=== PATIENT | female | born 1930 | race Caucasian/White ===

== ENCOUNTER 2017-06-13 18:16 | Inpatient (IN) | payer MEDICARE ==
[~2017-06-13] VITALS: Ht 157.5 cm; Wt 52.7 kg
[~2017-06-13 18:16] MED LIST: ALEN70TA2 PO
[2017-06-13] MEDS ORDERED: SODIUM CHLORIDE 0.9% 250 ML IV ONE (19:34)
[2017-06-13 20:08] LABS: Allen Test Yes; Base Excess 1.9 mmol/L (-2.0-2.0); Blood 02Sat 91.2 % (96-100); Blood COHb 0.8 % (0.5-1.5); Blood MetHb 0.5 % (0.0-1.5); HCO3 24.7 mmol/L (22-26.0); HHb 8.7 % (0.0-5.0); MODE ROOM AIR; PCO2 32.9 mmHg (35.0-45.0); PCO2(T) 32.9 mmHg (35.0-45.0); PO2 60.1 mmHg (80.0-100.0); PO2(T) 60.1 mmHg (80.0-100.0); Sample Type Arterial; pH 7.493 (7.350-7.450)
[2017-06-13 20:38] LABS: Basophils # (auto) 0.1 uL; Basophils % (auto) 0.4 % (0.0-2.0); Eosinophils # (auto) 0.1 uL; Eosinophils % (auto) 0.4 % (0.0-7.0); Hematocrit 38.6 % (36.0-46.0); Hemoglobin 12.6 g/dL (12.2-16.2); Lymphocytes # (auto) 0.8 uL; Lymphocytes % (auto) 5.7 % (10.0-50.0); Mean Corpuscular Hemoglobin 27.8 pg (28.0-32.0); Mean Corpuscular Hgb Conc. 32.7 g/dL (32.0-36.0); Mean Corpuscular Volume 85.1 fL (80.0-100.0); Mean Platelet Volume 7.7 fL (6.9-10.8); Monocytes # (auto) 1.2 uL; Monocytes % (auto) 8.8 % (0.0-12.0); Neutrophils # (auto) 11.4 uL; Neutrophils % (auto) 84.7 % (37.0-80.0); Platelet Count (auto) 241 10^3/uL (140-450); Red Cell Distribution Width 14.3 % (11.8-14.3); White Blood Cell 13.5 10^3/uL (4.4-10.8)
[2017-06-13 20:48] LABS: Albumin 2.9 g/dL (3.4-5.0); Anion Gap 10 (5-15); Aspartate Aminotransferase 21 U/L (15-37); Blood Urea Nitrogen 13 mg/dL (7-18); Calcium 8.4 mg/dL (8.5-10.1); Carbon Dioxide 26 mmol/L (21-32); Chloride 96 mmol/L (98-107); GFR African American 144 mL/min; GFR Non-African American 119 mL/min; Glucose 93 mg/dL (74-106); Potassium 4.2 mmol/L (3.5-5.1); Sodium 132 mmol/L (136-145)
[2017-06-13 20:53] LABS: Alkaline Phosphatase 85 U/L (45-117); Bilirubin, Total 0.9 mg/dL (0.2-1.0); Total Protein 6.8 g/dL (6.4-8.2)
[2017-06-13 20:54] LABS: Urine Bilirubin Negative (Negative); Urine Blood 2+ /uL (Negative); Urine Color Yellow (Yellow); Urine Glucose Normal (Normal); Urine Ketone 2+ (Negative); Urine Mucus FEW (None Seen); Urine Nitrite Negative (Negative); Urine RBC 4 /hpf (0 - 4); Urine Squamous Epithelial Cell FEW /hpf (<5); Urine Urobilinogen Normal (Negative); Urine pH 5.5 (5.0-8.0)
[2017-06-13 20:56] LABS: B-Type Natriuretic Peptide 116.84 pg/mL (0-100)
[2017-06-13 21:02] LABS: INR 1.12 (0.9-1.15)
[2017-06-13 21:04] LABS: Temperature: 22.8 C (20.0-25.0)
[2017-06-13] MEDS ORDERED: AZTREONAM 1GM INJ 1 GM in D5W 5% 50 ML IV ONE (22:15)
[2017-06-13] MEDS ORDERED: ENOXAPARIN SOD 60 MG/0.6 ML SYRINGE SC ONE (22:30)
[2017-06-13] MEDS ORDERED: IOHEXOL 350 MG/ML 100ML IJ ONE (22:40)
[2017-06-13] MEDS: SODIUM CHLORIDE 0.9% 1,000 ML IV SCH (22:40)
[2017-06-13] MEDS ORDERED: ONDANSETRON HCL 4 MG/2 ML VIAL IV PRN (22:45)
[2017-06-13] MEDS ORDERED: ALBUTEROL SULF 2.5 MG/0.5ML(0.5%) NEB SOLN NEB PRN (22:45)
[2017-06-13] MEDS ORDERED: DEXTROSE (50%) 50ML SYRG IV PRN (22:45)
[2017-06-13] MEDS ORDERED: NITROGLYCERIN 0.4 MG SL TAB SL PRN (22:45)
[2017-06-13] MEDS ORDERED: LACTULOSE 20Gm/30ML SOLN PO PRN (22:45)
[2017-06-13] MEDS ORDERED: MORPHINE SULF INJ 2 MG/ML SYRINGE 1ML IV PRN (22:45)
[2017-06-13] MEDS ORDERED: IPRATROPIUM BROM 0.5 MG/2.5ML INH SOL NEB PRN (22:45)
[2017-06-13] MEDS ORDERED: cefTRIAXone 1GM/10ml IVPUSH 10 ML IV ONE (22:45)
[2017-06-13] MEDS ORDERED: AZTREONAM 1 GM INJ VIAL ONE (23:10)
[2017-06-14] VITALS (9 sets, daily range): BP systolic 106–132; BP diastolic 46–65
[2017-06-14] MEDS: ACCU-CHEK COMFORT CURVE STRIP VI SCH ×3 (00:38→12:00)
[2017-06-14] MEDS ORDERED: LORA2TAB10 PO (00:56)
[2017-06-14] MEDS ORDERED: HYDR-4069 (00:56)
[2017-06-14] MEDS ORDERED: GABA-339 PO (00:56)
[2017-06-14] MEDS ORDERED: ATEN50TA PO (00:56)
[2017-06-14] MEDS ORDERED: ZOLP5TAB5 (00:56)
[2017-06-14] MEDS ORDERED: ANAS1TAB6 PO (00:56)
[2017-06-14] MEDS ORDERED: ATOR20TA PO (01:36)
[2017-06-14] MEDS ORDERED: LOVA20TA4 PO (01:44)
[2017-06-14] MEDS: HYDROcodone-ACET 5/325MG TAB PO PRN ×2 (02:48→20:59)
[2017-06-14] MEDS: InsuLIN REG 1unit/0.01ml Soln (100units/ml) SC SCH ×3 (05:37→12:00)
[2017-06-14] MEDS: GABAPENTIN 300 MG CAP PO SCH ×3 (05:37→21:54)
[2017-06-14 06:21] LABS: Basophils # (auto) 0 uL; Basophils % (auto) 0.3 % (0.0-2.0); Eosinophils # (auto) 0 uL; Eosinophils % (auto) 0.3 % (0.0-7.0); Hematocrit 32.5 % (36.0-46.0); Hemoglobin 11.2 g/dL (12.2-16.2); Lymphocytes # (auto) 0.9 uL; Lymphocytes % (auto) 9.1 % (10.0-50.0); Mean Corpuscular Hemoglobin 28.9 pg (28.0-32.0); Mean Corpuscular Hgb Conc. 34.5 g/dL (32.0-36.0); Mean Corpuscular Volume 83.7 fL (80.0-100.0); Mean Platelet Volume 7.8 fL (6.9-10.8); Monocytes # (auto) 1.1 uL; Monocytes % (auto) 10.5 % (0.0-12.0); Neutrophils # (auto) 8.2 uL; Neutrophils % (auto) 79.8 % (37.0-80.0); Nucleated Red Blood Cells % 0.1 %; Platelet Count (auto) 229 10^3/uL (140-450); Red Cell Distribution Width 14.3 % (11.8-14.3); White Blood Cell 10.3 10^3/uL (4.4-10.8)
[2017-06-14 06:40] LABS: Albumin 2.5 g/dL (3.4-5.0); BUN/Creatinine Ratio 29.7; Bilirubin, Total 0.6 mg/dL (0.2-1.0); Calcium 7.8 mg/dL (8.5-10.1); Potassium 3.6 mmol/L (3.5-5.1); Total Protein 5.8 g/dL (6.4-8.2)
[2017-06-14] MEDS: cefTRIAXone 1GM/10ml IVPUSH 10 ML IV SCH (09:10)
[2017-06-14] MEDS: ENOXAPARIN SOD 30 MG/0.3 ML SYRINGE SC SCH ×2 (09:10→21:54)
[2017-06-14] MEDS: PANTOPRAZOLE 40 MG/10 ML VIAL IV SCH (09:10)
[2017-06-14] MEDS: SODIUM CHLORIDE 0.9% 1,000 ML IV SCH ×2 (11:10→16:02)
[2017-06-15] MEDS: HYDROcodone-ACET 5/325MG TAB PO PRN ×3 (02:52→20:12)
[2017-06-15 05:00] VITALS: BP 110/53
[2017-06-15] MEDS: GABAPENTIN 300 MG CAP PO SCH ×5 (05:41→22:08)
[2017-06-15 06:19] LABS: Basophils # (auto) 0 uL; Basophils % (auto) 0.6 % (0.0-2.0); Eosinophils # (auto) 0.1 uL; Eosinophils % (auto) 1.9 % (0.0-7.0); Hemoglobin 10.4 g/dL (12.2-16.2); Lymphocytes # (auto) 0.6 uL; Lymphocytes % (auto) 10.6 % (10.0-50.0); Mean Corpuscular Hemoglobin 28.4 pg (28.0-32.0); Mean Corpuscular Hgb Conc. 33.6 g/dL (32.0-36.0); Mean Corpuscular Volume 84.5 fL (80.0-100.0); Mean Platelet Volume 7.6 fL (6.9-10.8); Monocytes # (auto) 0.7 uL; Neutrophils # (auto) 4.2 uL; Neutrophils % (auto) 73.9 % (37.0-80.0); Nucleated Red Blood Cells % 0.1 %; Platelet Count (auto) 220 10^3/uL (140-450); Red Cell Distribution Width 14.6 % (11.8-14.3); White Blood Cell 5.7 10^3/uL (4.4-10.8)
[2017-06-15 06:40] LABS: BUN/Creatinine Ratio 28.6; Calcium 7.8 mg/dL (8.5-10.1); Potassium 4.4 mmol/L (3.5-5.1)
[2017-06-15 09:03] VITALS: BP 110/58
[2017-06-15] MEDS: cefTRIAXone 1GM/10ml IVPUSH 10 ML IV SCH (09:45)
[2017-06-15] MEDS: PANTOPRAZOLE 40 MG/10 ML VIAL IV SCH (09:45)
[2017-06-15] MEDS: ENOXAPARIN SOD 30 MG/0.3 ML SYRINGE SC SCH ×2 (09:46→21:50)
[2017-06-15] MEDS: SODIUM CHLORIDE 0.9% 1,000 ML IV SCH (10:15)
[2017-06-15 13:41] VITALS: BP 130/65
[2017-06-15 16:48] VITALS: BP 121/65
[2017-06-15 22:00] VITALS: BP 132/65
[2017-06-15] MEDS: ZOLPIDEM TARTRATE 5 MG TAB PO PRN (22:08)
[2017-06-16] VITALS (35 sets, daily range): BP systolic 104–193; BP diastolic 50–111
[2017-06-16] MEDS: HYDROcodone-ACET 5/325MG TAB PO PRN ×3 (02:45→21:22)
[2017-06-16] MEDS: GABAPENTIN 300 MG CAP PO SCH ×3 (05:45→21:20)
[2017-06-16] MEDS: SODIUM CHLORIDE 0.9% 1,000 ML IV SCH ×2 (05:46→22:38)
[2017-06-16] MEDS ORDERED: LIDOCAINE 2%HCL (LOCAL ANESTH.) INJ 20ML MDV ONE ×2 (07:48→13:24)
[2017-06-16] MEDS ORDERED: diphenhdrAMINE HCL 50 MG/1 ML VL ONE (08:40)
[2017-06-16] MEDS ORDERED: fentaNYL CITRATE 100 MCG/2 ML VL ONE ×3 (08:51→13:46)
[2017-06-16] MEDS ORDERED: MIDAZOLAM HCL 1MG/1ML-2 ML VIAL ONE ×2 (08:51→13:46)
[2017-06-16] MEDS: ENOXAPARIN SOD 30 MG/0.3 ML SYRINGE SC SCH (10:00)
[2017-06-16] MEDS: cefTRIAXone 1GM/10ml IVPUSH 10 ML IV SCH (11:08)
[2017-06-16] MEDS: PANTOPRAZOLE 40 MG/10 ML VIAL IV SCH (11:13)
[2017-06-16] MEDS ORDERED: LEVOFLOXACIN 500MG 100 ML IV ONE (13:00)
[2017-06-16] MEDS ORDERED: fentaNYL CITRATE 100 MCG/2 ML VL IV ONE (14:00)
[2017-06-16 14:24] LABS: Body Fluid Polymorphonuclear 29 %
[2017-06-16] MEDS ORDERED: IOHEXOL 350 MG/ML 100ML IJ ONE ×2 (14:45→15:06)
[2017-06-16] MEDS: ZOLPIDEM TARTRATE 5 MG TAB PO PRN (22:31)
[2017-06-17] VITALS (27 sets, daily range): BP systolic 95–151; BP diastolic 58–86
[2017-06-17 05:26] LABS: Basophils # (auto) 0 uL; Basophils % (auto) 0.4 % (0.0-2.0); Eosinophils # (auto) 0.1 uL; Eosinophils % (auto) 1.3 % (0.0-7.0); Hematocrit 33.4 % (36.0-46.0); Hemoglobin 11.5 g/dL (12.2-16.2); Lymphocytes # (auto) 0.6 uL; Lymphocytes % (auto) 11.2 % (10.0-50.0); Mean Corpuscular Hemoglobin 28.7 pg (28.0-32.0); Mean Corpuscular Hgb Conc. 34.3 g/dL (32.0-36.0); Mean Corpuscular Volume 83.5 fL (80.0-100.0); Monocytes # (auto) 0.7 uL; Neutrophils # (auto) 3.8 uL; Neutrophils % (auto) 74.1 % (37.0-80.0); Nucleated Red Blood Cells % 0.1 %; Platelet Count (auto) 191 10^3/uL (140-450); Red Cell Distribution Width 14.1 % (11.8-14.3); White Blood Cell 5.1 10^3/uL (4.4-10.8)
[2017-06-17 05:39] LABS: BUN/Creatinine Ratio 12.9; Calcium 7.7 mg/dL (8.5-10.1); Potassium 3.4 mmol/L (3.5-5.1)
[2017-06-17] MEDS: GABAPENTIN 300 MG CAP PO SCH ×3 (05:53→22:18)
[2017-06-17] MEDS: HYDROcodone-ACET 5/325MG TAB PO PRN ×3 (05:59→21:00)
[2017-06-17] MEDS: PANTOPRAZOLE 40 MG/10 ML VIAL IV SCH (09:57)
[2017-06-17] MEDS ORDERED: LEVOFLOXACIN 500MG 100 ML IV SCH (10:00)
[2017-06-17] MEDS ORDERED: POTASSIUM CHL 20 Meq TABLET PO ONE (11:30)
[2017-06-17] MEDS ORDERED: METOPROLOL TARTRATE 25 MG TAB PO ONE (11:30)
[2017-06-17] MEDS: BOOST 8 ounces PO SCH (17:11)
[2017-06-17] MEDS: METOPROLOL TARTRATE 25 MG TAB PO SCH (22:17)
[2017-06-17] MEDS: ZOLPIDEM TARTRATE 5 MG TAB PO PRN (23:54)
[2017-06-18] VITALS (8 sets, daily range): BP systolic 106–120; BP diastolic 47–69
[2017-06-18] MEDS: HYDROcodone-ACET 5/325MG TAB PO PRN (03:20)
[2017-06-18 04:40] LABS: Hematocrit 30.9 % (36.0-46.0); Hemoglobin 10.5 g/dL (12.2-16.2)
[2017-06-18] MEDS: GABAPENTIN 300 MG CAP PO SCH (06:00)
[2017-06-18] MEDS: BOOST 8 ounces PO SCH (08:36)
[2017-06-18] MEDS: METOPROLOL TARTRATE 25 MG TAB PO SCH (09:44)
[2017-06-18] MEDS: PANTOPRAZOLE 40 MG/10 ML VIAL IV SCH (09:44)
[2017-06-18] MEDS ORDERED: MET25T PO (11:11)
[2017-06-18] MEDS ORDERED: LEVO500T21 PO (11:11)
== END 2017-06-18 14:02 | disposition home health service (06) | DRG 853 ==
LOC: EDBD 18:16 → ER 18:16 → TELE 18:17 → TELE-WESTW 23:33 → ICU WEST 06-16 11:00
PROVIDERS: ADMIT Family Medicine; ATTEND Internal Medicine
PROC: 0W9D30Z Drainage of Pericardial Cavity with Drainage Device, Percutaneous Approach (ICD-10-PCS; principal; 2017-06-16)
PROC: 06H03DZ Insertion of Intraluminal Device into Inferior Vena Cava, Percutaneous Approach (ICD-10-PCS; 2017-06-16)
DX: A41.9 Sepsis, unspecified organism (principal); G93.41 Metabolic encephalopathy; E43 Unspecified severe protein-calorie malnutrition; J18.9 Pneumonia, unspecified organism; I82.403 Acute embolism and thrombosis of unspecified deep veins of lower extremity, bilateral; I31.3 Pericardial effusion (noninflammatory); D64.9 Anemia, unspecified; J44.1 Chronic obstructive pulmonary disease with (acute) exacerbation; E11.9 Type 2 diabetes mellitus without complications; N39.0 Urinary tract infection, site not specified; J98.11 Atelectasis; J44.9 Chronic obstructive pulmonary disease, unspecified; I10 Essential (primary) hypertension; E78.5 Hyperlipidemia, unspecified; B95.2 Enterococcus as the cause of diseases classified elsewhere; Z85.118 Personal history of other malignant neoplasm of bronchus and lung; Z86.73 Personal history of transient ischemic attack (TIA), and cerebral infarction without residual deficits; Z87.891 Personal history of nicotine dependence; Z85.3 Personal history of malignant neoplasm of breast; Z92.3 Personal history of irradiation; Z68.21 Body mass index [BMI] 21.0-21.9, adult; Z90.10 Acquired absence of unspecified breast and nipple
CPT/HCPCS: 33010; 36415; 36600; 37191; 70450; 71010; 71275; 76930; 76937; 80048; 80053; 80061; 81001; 82805; 82962; 83036; 83605; 83735; 83880; 84132; 84484; 85014; 85018; 85025; 85379; 85610; 85730; 87040; 87081; 87086; 87088; 87186; 87205; 89051; 93005; 93306; 93970; 94761; 96361; 96365; 96367; 96372; 97163; 99152; 99153; C9113; J1956; J2250; J2405; J7060

== ENCOUNTER → 2017-07-04 | Outpatient (CLI) | payer MEDICARE ==
[~2017-07-04] MED LIST changes: +ANAS1TAB6 PO; +GABA-339 PO; +HYDR-4069; +LEVO500T21 PO; +LORA2TAB10 PO; +LOVA20TA4 PO; +MET25T PO
== END | disposition home or self-care (01) ==
LOC: XYW 12:58
PROVIDERS: ATTEND Internal Medicine Cardiovascular Disease
DX: I31.3 Pericardial effusion (noninflammatory) (principal)
CPT/HCPCS: 93306

== ENCOUNTER → 2017-10-10 | Outpatient (CLI) | payer MEDICARE | END | disposition home or self-care (01) | LOC: XYW 09:37 | PROVIDERS: ATTEND Internal Medicine Cardiovascular Disease | DX: I08.1 Rheumatic disorders of both mitral and tricuspid valves (principal); I31.3 Pericardial effusion (noninflammatory); J44.9 Chronic obstructive pulmonary disease, unspecified; E11.9 Type 2 diabetes mellitus without complications; I10 Essential (primary) hypertension; E78.5 Hyperlipidemia, unspecified | CPT/HCPCS: 93306 ==

== ENCOUNTER 2017-10-24 15:13 | Emergency (ER) | payer MEDICARE ==
[~2017-10-24] VITALS: Ht 160 cm; Wt 50.8 kg
[2017-10-24 15:45] VITALS: BP 163/90
[2017-10-24] MEDS ORDERED: cefTRIAXone W LIDOCAINE 1 GM IM IM ONE (17:00)
[2017-10-24] MEDS ORDERED: HYDROcodone-ACET 5/325MG TAB PO ONE (17:15)
[2017-10-24] MEDS ORDERED: cefTRIAXone 1GM/10ml IVPUSH 10 ML IV ONE (17:15)
== END 2017-10-24 17:40 | disposition home or self-care (01) ==
LOC: EDBD 15:13 → ER 15:19
DX: S01.21XA Laceration without foreign body of nose, initial encounter (principal); J44.9 Chronic obstructive pulmonary disease, unspecified; E11.9 Type 2 diabetes mellitus without complications; I10 Essential (primary) hypertension; E78.5 Hyperlipidemia, unspecified; Z87.891 Personal history of nicotine dependence; Z88.6 Allergy status to analgesic agent; Z85.118 Personal history of other malignant neoplasm of bronchus and lung; Z86.73 Personal history of transient ischemic attack (TIA), and cerebral infarction without residual deficits; V43.52XA Car driver injured in collision with other type car in traffic accident, initial encounter; Y93.89 Activity, other specified; Y92.410 Unspecified street and highway as the place of occurrence of the external cause; Y99.8 Other external cause status
CPT/HCPCS: 12011; 70450; 70486; 72125; 96374; 99284; J0696

== ENCOUNTER 2018-03-01 10:16 | Emergency (ER) | payer MEDICARE ==
[~2018-03-01] VITALS: Ht 162.6 cm; Wt 54.4 kg
[~2018-03-01 10:16] MED LIST changes: -ANAS1TAB6 PO; +ANAS1TAB7 PO
[2018-03-01 10:49] VITALS: BP 134/63
[2018-03-01 12:14] LABS: Basophils # (auto) 0 uL; Basophils % (auto) 0.4 % (0.0-2.0); Eosinophils # (auto) 0.1 uL; Eosinophils % (auto) 2.1 % (0.0-7.0); Hematocrit 40.9 % (36.0-46.0); Hemoglobin 13.6 g/dL (12.2-16.2); Lymphocytes # (auto) 1.3 uL; Lymphocytes % (auto) 24.8 % (10.0-50.0); Mean Corpuscular Hemoglobin 28.6 pg (28.0-32.0); Mean Corpuscular Hgb Conc. 33.2 g/dL (32.0-36.0); Mean Corpuscular Volume 86.1 fL (80.0-100.0); Monocytes # (auto) 0.6 uL; Monocytes % (auto) 11.2 % (0.0-12.0); Neutrophils # (auto) 3.1 uL; Neutrophils % (auto) 61.5 % (37.0-80.0); Nucleated Red Blood Cells % 0.1 %; Platelet Count (auto) 217 10^3/uL (140-450); Red Blood Cells 4.75 10^6/uL (4.0-5.20); Red Cell Distribution Width 16.8 % (11.8-14.3); White Blood Cell 5.1 10^3/uL (4.4-10.8)
[2018-03-01 12:33] LABS: Alanine Aminotransferase 35 U/L (13-56); Anion Gap 5 (5-15); Aspartate Aminotransferase 39 U/L (15-37); Blood Urea Nitrogen 6 mg/dL (7-18); Calcium 7.8 mg/dL (8.5-10.1); Carbon Dioxide 28 mmol/L (21-32); Chloride 103 mmol/L (98-107); GFR African American 107 mL/min; GFR Non-African American 88 mL/min; Glucose 98 mg/dL (74-106); Magnesium 2.1 mg/dL (1.6-2.6); Potassium 4.3 mmol/L (3.5-5.1); Sodium 136 mmol/L (136-145)
[2018-03-01 12:38] LABS: Alkaline Phosphatase 136 U/L (45-117); Bilirubin, Total 0.6 mg/dL (0.2-1.0); Total Protein 6.3 g/dL (6.4-8.2)
== END 2018-03-01 14:21 | disposition left against medical advice (07) ==
LOC: ER 10:16
DX: R22.43 Localized swelling, mass and lump, lower limb, bilateral (principal); R53.1 Weakness; M19.90 Unspecified osteoarthritis, unspecified site; J44.9 Chronic obstructive pulmonary disease, unspecified; E11.9 Type 2 diabetes mellitus without complications; E78.5 Hyperlipidemia, unspecified; I10 Essential (primary) hypertension; Z90.710 Acquired absence of both cervix and uterus; Z88.8 Allergy status to other drugs, medicaments and biological substances; Z79.899 Other long term (current) drug therapy; Z86.73 Personal history of transient ischemic attack (TIA), and cerebral infarction without residual deficits; Z87.891 Personal history of nicotine dependence; Z53.29 Procedure and treatment not carried out because of patient's decision for other reasons
CPT/HCPCS: 36415; 71046; 80053; 83735; 83880; 84484; 85025; 93005

== ENCOUNTER 2018-03-09 11:02 | Observation (INO) | payer MEDICARE ==
[~2018-03-09] VITALS: Ht 162.6 cm; Wt 52.2 kg
[2018-03-09 12:03] LABS: Basophils # (auto) 0 uL; Basophils % (auto) 0.1 % (0.0-2.0); Eosinophils # (auto) 0.1 uL; Eosinophils % (auto) 1.4 % (0.0-7.0); Hematocrit 41.2 % (36.0-46.0); Hemoglobin 14.1 g/dL (12.2-16.2); Lymphocytes % (auto) 16.1 % (10.0-50.0); Mean Corpuscular Hemoglobin 29.4 pg (28.0-32.0); Mean Corpuscular Hgb Conc. 34.2 g/dL (32.0-36.0); Mean Corpuscular Volume 85.8 fL (80.0-100.0); Monocytes # (auto) 0.5 uL; Monocytes % (auto) 8.8 % (0.0-12.0); Neutrophils # (auto) 4.4 uL; Neutrophils % (auto) 73.6 % (37.0-80.0); Nucleated Red Blood Cells % 0.1 %; Platelet Count (auto) 235 10^3/uL (140-450); Red Blood Cells 4.81 10^6/uL (4.0-5.20); Red Cell Distribution Width 16.2 % (11.8-14.3); White Blood Cell 5.9 10^3/uL (4.4-10.8)
[2018-03-09 12:20] LABS: Alanine Aminotransferase 35 U/L (13-56); Albumin 3.2 g/dL (3.4-5.0); Alkaline Phosphatase 134 U/L (45-117); Anion Gap 5 (5-15); Aspartate Aminotransferase 39 U/L (15-37); BUN/Creatinine Ratio 10.3; Bilirubin, Total 0.3 mg/dL (0.2-1.0); Blood Urea Nitrogen 8 mg/dL (7-18); Calcium 8.4 mg/dL (8.5-10.1); Carbon Dioxide 26 mmol/L (21-32); Chloride 106 mmol/L (98-107); GFR African American 90 mL/min; GFR Non-African American 74 mL/min; Glucose 112 mg/dL (74-106); Potassium 4.1 mmol/L (3.5-5.1); Sodium 137 mmol/L (136-145); Total Protein 6.7 g/dL (6.4-8.2)
[2018-03-09 12:34] LABS: INR 1.01 (0.9-1.15); Partial Thromboplastin Time 29.9 sec (23.78-33.04); Prothrombin Time 10.8 sec (9.27-12.13)
[2018-03-09 13:36] VITALS: BP 148/63
== END 2018-03-09 15:36 | disposition home or self-care (01) | DRG 558 ==
LOC: ER 11:02 → OVERFLOW 11:03 → ER 15:36
PROVIDERS: ADMIT Family Medicine; ATTEND Family Medicine
DX: M71.21 Synovial cyst of popliteal space [Baker], right knee (principal); E78.5 Hyperlipidemia, unspecified; I10 Essential (primary) hypertension; J44.9 Chronic obstructive pulmonary disease, unspecified; M81.0 Age-related osteoporosis without current pathological fracture; Z82.49 Family history of ischemic heart disease and other diseases of the circulatory system; Z86.73 Personal history of transient ischemic attack (TIA), and cerebral infarction without residual deficits; Z90.710 Acquired absence of both cervix and uterus; Z87.891 Personal history of nicotine dependence; Z79.899 Other long term (current) drug therapy
CPT/HCPCS: 36415; 80053; 83735; 83880; 84484; 85025; 85610; 85730; 93970; 99285; G0378

== ENCOUNTER 2019-10-06 14:58 | Inpatient (IN) | payer MEDICARE ==
[~2019-10-06] VITALS: Ht 162.6 cm; Wt 68.6 kg
[~2019-10-06 14:58] MED LIST changes: +POM PO
[2019-10-06] MEDS ORDERED: SODIUM CHLORIDE 0.9% 1,000 ML IV ONE ×2 (15:10→19:00)
[2019-10-06 15:31] LABS: Basophils # (auto) 0.1 10 ^3/uL (0-0.2); Basophils % (auto) 0.6 % (0.0-2.0); Eosinophils # (auto) 0 10 ^3/uL (0-0.8); Eosinophils % (auto) 0.1 % (0.0-7.0); Hematocrit 38.5 % (36.0-46.0); Hemoglobin 12.9 g/dL (12.2-16.2); Lymphocytes # (auto) 0.9 10 ^3/uL (0.4-5.4); Lymphocytes % (auto) 9.2 % (10.0-50.0); Mean Corpuscular Hemoglobin 28.2 pg (28.0-32.0); Mean Corpuscular Hgb Conc. 33.6 g/dL (32.0-36.0); Monocytes # (auto) 0.8 10 ^3/uL (0-1.3); Monocytes % (auto) 8.9 % (0.0-12.0); Neutrophils # (auto) 7.6 10 ^3/uL (1.6-8.6); Neutrophils % (auto) 81.2 % (37.0-80.0); Nucleated Red Blood Cells % 0.1 %; Platelet Count (auto) 324 10^3/uL (140-450); Red Blood Cells 4.59 10^6/uL (4.0-5.20); Red Cell Distribution Width 16.6 % (11.8-14.3); White Blood Cell 9.3 10^3/uL (4.4-10.8)
[2019-10-06 15:43] LABS: INR 1.12 (0.9-1.15); Partial Thromboplastin Time 26.4 sec (23.64-32.05)
[2019-10-06 15:49] LABS: Albumin 2.7 g/dL (3.4-5.0); Anion Gap 9 (5-15); Blood Urea Nitrogen 28 mg/dL (7-18); Calcium 7.9 mg/dL (8.5-10.1); Carbon Dioxide 23 mmol/L (21-32); Chloride 100 mmol/L (98-107); Glucose 97 mg/dL (74-106); Potassium 3.9 mmol/L (3.5-5.1); Sodium 132 mmol/L (136-145)
[2019-10-06 15:51] LABS: Alanine Aminotransferase 27 U/L (13-56); Aspartate Aminotransferase 38 U/L (15-37); BUN/Creatinine Ratio 43.1; GFR African American 110 mL/min; GFR Non-African American 91 mL/min
[2019-10-06 15:55] LABS: Alkaline Phosphatase 75 U/L (45-117); Bilirubin, Total 0.5 mg/dL (0.2-1.0); Total Protein 5.8 g/dL (6.4-8.2)
[2019-10-06] MEDS ORDERED: PIPERACILLIN-TAZOB 3.375GM 100 ML IV ONE (16:30)
[2019-10-06] MEDS ORDERED: MORPHINE SULFATE 4 MG/ML SYR/VIAL IV ONE (16:30)
[2019-10-06] MEDS ORDERED: ONDANSETRON HCL 4 MG/2 ML VIAL IV ONE (16:30)
[2019-10-06] MEDS ORDERED: GASTROGRAFIN 120 ML SOL ONE (16:35)
[2019-10-06] MEDS ORDERED: LORazepam 2MG/ML-1ML VIAL ONE (17:12)
[2019-10-06] MEDS ORDERED: cloNIDine HCL 0.1 MG TAB ONE (17:12)
[2019-10-06] MEDS ORDERED: cloNIDine HCL 0.1 MG TAB PO ONE (17:30)
[2019-10-06] MEDS ORDERED: LORazepam 2MG/ML-1ML VIAL IV ONE (17:30)
[2019-10-06] MEDS ORDERED: MORPHINE SULF INJ 2 MG/ML SYRINGE 1ML IV PRN (19:00)
[2019-10-06] MEDS ORDERED: NITROGLYCERIN 0.4 MG SL TAB SL PRN (19:00)
[2019-10-06 19:50] VITALS: BP 144/96
[2019-10-06] MEDS: D5W/SOD CHL 0.45%/KCL 20MEQ 1,000 ML IV SCH (20:18)
[2019-10-06 20:49] VITALS: BP 142/91
[2019-10-06] MEDS: METOCLOPRAMIDE HCL 5MG/ml INJ 2ml VIAL IV SCH (22:23)
[2019-10-06] MEDS: MORPHINE SULF INJ 2 MG/ML SYRINGE 1ML IV PRN (22:25)
[2019-10-07] MEDS: MORPHINE SULF INJ 2 MG/ML SYRINGE 1ML IV PRN ×5 (02:34→23:05)
[2019-10-07 05:53] LABS: Basophils # (auto) 0 10 ^3/uL (0-0.2); Basophils % (auto) 0.1 % (0.0-2.0); Eosinophils # (auto) 0 10 ^3/uL (0-0.8); Eosinophils % (auto) 0.1 % (0.0-7.0); Hematocrit 38.5 % (36.0-46.0); Hemoglobin 12.9 g/dL (12.2-16.2); Lymphocytes % (auto) 8.4 % (10.0-50.0); Mean Corpuscular Hemoglobin 28.1 pg (28.0-32.0); Mean Corpuscular Hgb Conc. 33.5 g/dL (32.0-36.0); Monocytes # (auto) 1.4 10 ^3/uL (0-1.3); Neutrophils % (auto) 79.4 % (37.0-80.0); Platelet Count (auto) 307 10^3/uL (140-450); Red Blood Cells 4.58 10^6/uL (4.0-5.20); Red Cell Distribution Width 16.4 % (11.8-14.3); White Blood Cell 11.3 10^3/uL (4.4-10.8)
[2019-10-07 05:57] VITALS: BP 176/85
[2019-10-07 06:08] LABS: INR 1.14 (0.9-1.15); Partial Thromboplastin Time 27.6 sec (23.64-32.05)
[2019-10-07 06:11] LABS: Albumin 2.6 g/dL (3.4-5.0); Calcium 7.7 mg/dL (8.5-10.1); Potassium 3.8 mmol/L (3.5-5.1)
[2019-10-07] MEDS: METOCLOPRAMIDE HCL 5MG/ml INJ 2ml VIAL IV SCH ×3 (06:11→22:17)
[2019-10-07 06:15] LABS: BUN/Creatinine Ratio 41.3; Bilirubin, Total 0.4 mg/dL (0.2-1.0); Total Protein 5.7 g/dL (6.4-8.2)
[2019-10-07] MEDS: D5W/SOD CHL 0.45%/KCL 20MEQ 1,000 ML IV SCH ×2 (07:00→15:32)
[2019-10-07 08:02] VITALS: BP 152/71
[2019-10-07 09:00] VITALS: BP 152/71
[2019-10-07] MEDS: ONDANSETRON HCL 4 MG/2 ML VIAL IV PRN ×2 (09:01→18:50)
[2019-10-07] MEDS: PANTOPRAZOLE 40 MG/10 ML VIAL INJ IV SCH (09:01)
[2019-10-07] MEDS ORDERED: cefTRIAXone 1GM/50ML D5W 50 ML IV ONE (11:15)
[2019-10-07] MEDS: METOPROLOL TARTRATE 1MG/1ML-5ML VIAL IV SCH ×2 (11:48→17:31)
[2019-10-07 13:00] VITALS: BP 154/94
[2019-10-07] MEDS: metroNIDAZOLE 500MG/100ML 100 ML IV SCH ×2 (13:56→22:17)
[2019-10-07 16:58] LABS: Urine Bacteria NONE SEEN /hpf (None Seen); Urine Blood Negative /uL (Negative); Urine Mucus FEW (None Seen); Urine WBC 1 /hpf (0 - 5)
[2019-10-07 17:25] VITALS: BP 153/83
[2019-10-07 22:00] VITALS: BP 148/76
[2019-10-08] MEDS: METOPROLOL TARTRATE 1MG/1ML-5ML VIAL IV SCH ×5 (00:28→23:57)
[2019-10-08] MEDS: D5W/SOD CHL 0.45%/KCL 20MEQ 1,000 ML IV SCH ×3 (03:49→21:20)
[2019-10-08] MEDS: MORPHINE SULF INJ 2 MG/ML SYRINGE 1ML IV PRN ×4 (03:50→21:10)
[2019-10-08 05:00] VITALS: BP 156/72
[2019-10-08] MEDS: metroNIDAZOLE 500MG/100ML 100 ML IV SCH ×3 (06:36→22:29)
[2019-10-08 08:00] VITALS: BP 165/80
[2019-10-08 08:46] VITALS: BP 165/80
[2019-10-08] MEDS: PANTOPRAZOLE 40 MG/10 ML VIAL INJ IV SCH (09:21)
[2019-10-08] MEDS: cefTRIAXone 1GM/50ML D5W 50 ML IV SCH (09:21)
[2019-10-08 13:00] VITALS: BP 157/91
[2019-10-08 17:21] VITALS: BP 156/97
[2019-10-08] MEDS: ONDANSETRON HCL 4 MG/2 ML VIAL IV PRN (21:11)
[2019-10-08 22:00] VITALS: BP 156/85
[2019-10-09] MEDS: MORPHINE SULF INJ 2 MG/ML SYRINGE 1ML IV PRN (01:24)
[2019-10-09 05:00] VITALS: BP 145/81
[2019-10-09] MEDS: metroNIDAZOLE 500MG/100ML 100 ML IV SCH ×4 (06:12→22:07)
[2019-10-09] MEDS: METOPROLOL TARTRATE 1MG/1ML-5ML VIAL IV SCH ×3 (06:13→17:12)
[2019-10-09 06:32] LABS: Basophils # (auto) 0 10 ^3/uL (0-0.2); Basophils % (auto) 0.1 % (0.0-2.0); Eosinophils # (auto) 0.1 10 ^3/uL (0-0.8); Eosinophils % (auto) 0.7 % (0.0-7.0); Hematocrit 40.6 % (36.0-46.0); Hemoglobin 13.3 g/dL (12.2-16.2); Lymphocytes # (auto) 1.1 10 ^3/uL (0.4-5.4); Lymphocytes % (auto) 9.7 % (10.0-50.0); Mean Corpuscular Hemoglobin 27.8 pg (28.0-32.0); Mean Corpuscular Hgb Conc. 32.8 g/dL (32.0-36.0); Mean Corpuscular Volume 84.6 fL (80.0-100.0); Monocytes % (auto) 8.7 % (0.0-12.0); Neutrophils # (auto) 9.1 10 ^3/uL (1.6-8.6); Neutrophils % (auto) 80.8 % (37.0-80.0); Nucleated Red Blood Cells % 0.1 %; Platelet Count (auto) 299 10^3/uL (140-450); Red Cell Distribution Width 16.8 % (11.8-14.3); White Blood Cell 11.3 10^3/uL (4.4-10.8)
[2019-10-09 06:48] LABS: Potassium 4.4 mmol/L (3.5-5.1)
[2019-10-09 06:51] LABS: BUN/Creatinine Ratio 31.9; Calcium 7.2 mg/dL (8.5-10.1)
[2019-10-09 09:11] VITALS: BP 141/66
[2019-10-09] MEDS: D5W/SOD CHL 0.45%/KCL 20MEQ 1,000 ML IV SCH ×2 (09:20→14:48)
[2019-10-09] MEDS: PANTOPRAZOLE 40 MG/10 ML VIAL INJ IV SCH (09:21)
[2019-10-09] MEDS: cefTRIAXone 1GM/50ML D5W 50 ML IV SCH (09:21)
[2019-10-09] MEDS: ONDANSETRON HCL 4 MG/2 ML VIAL IV PRN ×2 (09:37→21:14)
[2019-10-09] MEDS ORDERED: POVIDONE IODINE 10 % TOPICAL OINT 30GM TOP ONE (10:13)
[2019-10-09] MEDS ORDERED: fentaNYL CITRATE 100 MCG/2 ML VL ONE (11:39)
[2019-10-09] MEDS ORDERED: ROCURONIUM 10MG/ML 10ML VIAL IV ONE (11:39)
[2019-10-09] MEDS ORDERED: PROPOFOL 10 MG/ML 20 ML IV ONE (11:39)
[2019-10-09] MEDS ORDERED: GLYCOPYRROLATE 0.2 MG/ML 1ML VIAL IV ONE (11:41)
[2019-10-09] MEDS ORDERED: NEOSTIGMINE 1 MG/ML INJ (10mg/10ML VIAL) IV ONE (11:41)
[2019-10-09] MEDS ORDERED: SUCCINYLCHOLINE CHLORIDE 20 MG/ML 10ML VIAL IV ONE (11:41)
[2019-10-09] MEDS ORDERED: KETOROLAC TROMETH 15 mg/ml 1ML VL IV PRN (13:00)
[2019-10-09] MEDS ORDERED: ePHEDrine SULFATE 50 MG/ML AMP IV PRN (13:15)
[2019-10-09] MEDS ORDERED: hydrALAZINE HCL 20 MG/ML VL IV PRN (13:15)
[2019-10-09] MEDS ORDERED: ONDANSETRON HCL 4 MG/2 ML VIAL IV PRN (13:15)
[2019-10-09] MEDS ORDERED: MORPHINE SULF INJ 2 MG/ML SYRINGE 1ML ONE ×2 (13:28→13:57)
[2019-10-09] MEDS: MORPHINE SULFATE 4 MG/ML SYR/VIAL IV PRN ×4 (13:32→14:08)
[2019-10-09] MEDS: NEOSTIGMINE 1 MG/ML INJ (10mg/10ML VIAL) SC SCH ×3 (14:00→22:09)
[2019-10-09] MEDS: ceFAZolin 1GM/50ML 50 ML IV SCH ×2 (15:04→23:11)
[2019-10-09 15:48] VITALS: BP 134/81
[2019-10-09] MEDS ORDERED: TPN PER PHARMACY 0 ML IV SCH (16:15)
[2019-10-09 20:00] VITALS: BP 138/80
[2019-10-09] MEDS ORDERED: D5W IV NR (20:00)
[2019-10-09] MEDS ORDERED: AMINO ACID INFUSION IV NR (20:00)
[2019-10-10] MEDS ORDERED: DEXTROSE (50%) 50ML SYRG IV SCH
[2019-10-10] MEDS: ACCU-CHEK COMFORT CURVE STRIP VI SCH ×5 (00:08→23:47)
[2019-10-10 00:10] VITALS: BP 134/80
[2019-10-10] MEDS: METOPROLOL TARTRATE 1MG/1ML-5ML VIAL IV SCH ×5 (00:10→23:46)
[2019-10-10] MEDS: InsuLIN REG 1unit/0.01ml Soln (100units/ml) SC SCH ×5 (00:15→23:47)
[2019-10-10 01:05] LABS: Basophils # (auto) 0 10 ^3/uL (0-0.2); Basophils % (auto) 0.1 % (0.0-2.0); Eosinophils # (auto) 0 10 ^3/uL (0-0.8); Eosinophils % (auto) 0.1 % (0.0-7.0); Hematocrit 42.9 % (36.0-46.0); Hemoglobin 13.8 g/dL (12.2-16.2); Lymphocytes # (auto) 0.8 10 ^3/uL (0.4-5.4); Lymphocytes % (auto) 3.6 % (10.0-50.0); Mean Corpuscular Hemoglobin 27.2 pg (28.0-32.0); Mean Corpuscular Hgb Conc. 32.2 g/dL (32.0-36.0); Mean Corpuscular Volume 84.4 fL (80.0-100.0); Monocytes % (auto) 4.4 % (0.0-12.0); Neutrophils # (auto) 21.2 10 ^3/uL (1.6-8.6); Neutrophils % (auto) 91.8 % (37.0-80.0); Platelet Count (auto) 329 10^3/uL (140-450); Red Blood Cells 5.08 10^6/uL (4.0-5.20); Red Cell Distribution Width 16.2 % (11.8-14.3); White Blood Cell 23.1 10^3/uL (4.4-10.8)
[2019-10-10 01:21] LABS: BUN/Creatinine Ratio 28.6; Calcium 7.1 mg/dL (8.5-10.1); Magnesium 1.6 mg/dL (1.6-2.6); Phosphorus 3.6 mg/dL (2.5-4.90)
[2019-10-10 01:24] LABS: Bilirubin, Total 0.5 mg/dL (0.2-1.0); Total Protein 4.3 g/dL (6.4-8.2)
[2019-10-10 01:25] LABS: Pre Albumin 12.9 mg/dL (20.0-40.0)
[2019-10-10 01:26] LABS: INR 1.22 (0.9-1.15)
[2019-10-10] MEDS: D5W/SOD CHL 0.45%/KCL 20MEQ 1,000 ML IV SCH ×3 (02:20→16:29)
[2019-10-10] MEDS: NEOSTIGMINE 1 MG/ML INJ (10mg/10ML VIAL) SC SCH ×6 (02:41→21:09)
[2019-10-10] MEDS ORDERED: SODIUM CHLORIDE 0.9% 500 ML IV ONE ×2 (02:45→06:30)
[2019-10-10] MEDS: ONDANSETRON HCL 4 MG/2 ML VIAL IV PRN (03:24)
[2019-10-10 04:00] VITALS: BP 137/67
[2019-10-10] MEDS: metroNIDAZOLE 500MG/100ML 100 ML IV SCH ×3 (05:17→21:41)
[2019-10-10] MEDS: ceFAZolin 1GM/50ML 50 ML IV SCH ×3 (06:29→21:09)
[2019-10-10] MEDS: MORPHINE SULFATE 4 MG/ML SYR/VIAL IV PRN (07:09)
[2019-10-10 08:00] VITALS: BP 141/64
[2019-10-10] MEDS: PANTOPRAZOLE 40 MG/10 ML VIAL INJ IV SCH (10:37)
[2019-10-10] MEDS: ALBUMIN 25% 50 ML IV SCH ×4 (10:38→20:13)
[2019-10-10 11:22] LABS: Calcium 6.8 mg/dL (8.5-10.1); Potassium 4.6 mmol/L (3.5-5.1)
[2019-10-10 11:28] LABS: Albumin 1.8 g/dL (3.4-5.0); BUN/Creatinine Ratio 32.5; Bilirubin, Total 0.4 mg/dL (0.2-1.0); Total Protein 4.5 g/dL (6.4-8.2)
[2019-10-10 11:33] VITALS: BP 134/52
[2019-10-10] MEDS: HYDROmorphone HCL 2 MG/ML VL IV PRN ×2 (15:44→21:19)
[2019-10-10] MEDS ORDERED: KETOROLAC TROMETH 30 MG/ML 1ML VIAL IV PRN (15:45)
[2019-10-10] MEDS ORDERED: LIDOCAINE 1% (LOCAL ANESTH.) PF 5ml SDV ID ONE (17:45)
[2019-10-10 17:52] VITALS: BP 120/52
[2019-10-10] MEDS ORDERED: SODIUM BICARBONATE 8.4% INJ 50ML SYRINGE ONE (19:45)
[2019-10-10 20:00] VITALS: BP 135/59
[2019-10-10] MEDS ORDERED: PPN PER PHARMACY IV NR ×11 (20:00)
[2019-10-10] MEDS: SODIUM CHLOR 0.9% PF (SALINE LOCK) 10ML VIAL/SYR IV SCH (20:13)
[2019-10-11] VITALS: BP 142/63
[2019-10-11] MEDS: NEOSTIGMINE 1 MG/ML INJ (10mg/10ML VIAL) SC SCH ×6 (01:56→22:09)
[2019-10-11] MEDS: HYDROmorphone HCL 2 MG/ML VL IV PRN ×3 (01:57→22:00)
[2019-10-11] MEDS: D5W/SOD CHL 0.45%/KCL 20MEQ 1,000 ML IV SCH ×2 (02:30→09:35)
[2019-10-11 03:36] LABS: Basophils # (auto) 0 10 ^3/uL (0-0.2); Basophils % (auto) 0.1 % (0.0-2.0); Eosinophils # (auto) 0.1 10 ^3/uL (0-0.8); Eosinophils % (auto) 0.8 % (0.0-7.0); Hematocrit 29.2 % (36.0-46.0); Hemoglobin 9.8 g/dL (12.2-16.2); Lymphocytes # (auto) 0.8 10 ^3/uL (0.4-5.4); Mean Corpuscular Hemoglobin 28.5 pg (28.0-32.0); Mean Corpuscular Hgb Conc. 33.6 g/dL (32.0-36.0); Mean Corpuscular Volume 84.8 fL (80.0-100.0); Monocytes # (auto) 1.1 10 ^3/uL (0-1.3); Monocytes % (auto) 9.6 % (0.0-12.0); Neutrophils # (auto) 9.7 10 ^3/uL (1.6-8.6); Neutrophils % (auto) 82.5 % (37.0-80.0); Platelet Count (auto) 214 10^3/uL (140-450); Red Blood Cells 3.45 10^6/uL (4.0-5.20); Red Cell Distribution Width 16.3 % (11.8-14.3); White Blood Cell 11.7 10^3/uL (4.4-10.8)
[2019-10-11 04:00] VITALS: BP 143/61
[2019-10-11 04:02] LABS: Albumin 2.4 g/dL (3.4-5.0); BUN/Creatinine Ratio 28.8; Calcium 6.9 mg/dL (8.5-10.1); Magnesium 1.7 mg/dL (1.6-2.6); Potassium 3.9 mmol/L (3.5-5.1)
[2019-10-11 04:05] LABS: Bilirubin, Total 0.4 mg/dL (0.2-1.0); Phosphorus 1.4 mg/dL (2.5-4.90); Total Protein 4.2 g/dL (6.4-8.2)
[2019-10-11] MEDS: metroNIDAZOLE 500MG/100ML 100 ML IV SCH ×3 (05:06→23:59)
[2019-10-11] MEDS: ACCU-CHEK COMFORT CURVE STRIP VI SCH ×3 (05:07→18:13)
[2019-10-11] MEDS: ceFAZolin 1GM/50ML 50 ML IV SCH ×3 (06:06→22:09)
[2019-10-11] MEDS: ONDANSETRON HCL 4 MG/2 ML VIAL IV PRN (06:07)
[2019-10-11] MEDS: METOPROLOL TARTRATE 1MG/1ML-5ML VIAL IV SCH ×3 (06:07→18:48)
[2019-10-11] MEDS: InsuLIN REG 1unit/0.01ml Soln (100units/ml) SC SCH ×3 (06:09→18:00)
[2019-10-11 07:30] VITALS: BP 149/71
[2019-10-11] MEDS ORDERED: SODIUM PHOSPHATES 40 MEQ in D5W 5% 250 ML IV ONE (08:45)
[2019-10-11] MEDS: SODIUM CHLOR 0.9% PF (SALINE LOCK) 10ML VIAL/SYR IV SCH ×2 (09:36→22:09)
[2019-10-11] MEDS: PANTOPRAZOLE 40 MG/10 ML VIAL INJ IV SCH (09:36)
[2019-10-11 17:00] VITALS: BP 137/60
[2019-10-11] MEDS ORDERED: TPN PER PHARMACY IV NR ×11 (20:00)
[2019-10-11 23:04] VITALS: BP 138/64
[2019-10-12] MEDS: InsuLIN REG 1unit/0.01ml Soln (100units/ml) SC SCH ×4 (00:23→17:46)
[2019-10-12] MEDS: D5W/SOD CHL 0.45%/KCL 20MEQ 1,000 ML IV SCH ×2 (02:56→18:05)
[2019-10-12] MEDS: NEOSTIGMINE 1 MG/ML INJ (10mg/10ML VIAL) SC SCH ×6 (02:56→21:13)
[2019-10-12 05:09] VITALS: BP 139/66
[2019-10-12] MEDS: ceFAZolin 1GM/50ML 50 ML IV SCH ×3 (05:22→21:12)
[2019-10-12 06:00] LABS: Basophils # (auto) 0 10 ^3/uL (0-0.2); Basophils % (auto) 0.2 % (0.0-2.0); Eosinophils # (auto) 0.1 10 ^3/uL (0-0.8); Eosinophils % (auto) 1.2 % (0.0-7.0); Hemoglobin 10.5 g/dL (12.2-16.2); Lymphocytes # (auto) 0.7 10 ^3/uL (0.4-5.4); Lymphocytes % (auto) 6.7 % (10.0-50.0); Mean Corpuscular Hemoglobin 28.7 pg (28.0-32.0); Mean Corpuscular Volume 84.3 fL (80.0-100.0); Monocytes # (auto) 1.3 10 ^3/uL (0-1.3); Monocytes % (auto) 12.7 % (0.0-12.0); Neutrophils # (auto) 8.2 10 ^3/uL (1.6-8.6); Neutrophils % (auto) 79.2 % (37.0-80.0); Platelet Count (auto) 222 10^3/uL (140-450); Red Blood Cells 3.68 10^6/uL (4.0-5.20); Red Cell Distribution Width 16.2 % (11.8-14.3); White Blood Cell 10.3 10^3/uL (4.4-10.8)
[2019-10-12 06:19] LABS: Calcium 6.7 mg/dL (8.5-10.1); Potassium 3.4 mmol/L (3.5-5.1)
[2019-10-12 06:23] LABS: Bilirubin, Total 0.3 mg/dL (0.2-1.0); Total Protein 4.2 g/dL (6.4-8.2)
[2019-10-12 06:25] LABS: Phosphorus 2.2 mg/dL (2.5-4.90)
[2019-10-12] MEDS: METOPROLOL TARTRATE 1MG/1ML-5ML VIAL IV SCH ×4 (06:37→17:41)
[2019-10-12] MEDS: metroNIDAZOLE 500MG/100ML 100 ML IV SCH ×3 (06:38→21:12)
[2019-10-12] MEDS: ACCU-CHEK COMFORT CURVE STRIP VI SCH ×4 (06:38→17:41)
[2019-10-12] MEDS: HYDROmorphone HCL 2 MG/ML VL IV PRN ×3 (06:41→23:33)
[2019-10-12 09:10] VITALS: BP 122/56
[2019-10-12] MEDS ORDERED: POTASSIUM PHOSP 22MEQ(15MMOLE) in NS 100 ML IV ONE (09:45)
[2019-10-12] MEDS: SODIUM CHLOR 0.9% PF (SALINE LOCK) 10ML VIAL/SYR IV SCH ×2 (09:57→21:13)
[2019-10-12] MEDS: PANTOPRAZOLE 40 MG/10 ML VIAL INJ IV SCH (09:57)
[2019-10-12 13:00] VITALS: BP 124/60
[2019-10-12 16:46] VITALS: BP 125/58
[2019-10-12] MEDS ORDERED: TPN PER PHARMACY IV NR ×11 (20:00)
[2019-10-12 22:06] VITALS: BP 141/68
[2019-10-13] MEDS: NEOSTIGMINE 1 MG/ML INJ (10mg/10ML VIAL) SC SCH ×6 (01:59→21:17)
[2019-10-13] MEDS: metroNIDAZOLE 500MG/100ML 100 ML IV SCH ×3 (05:31→22:10)
[2019-10-13] MEDS: ceFAZolin 1GM/50ML 50 ML IV SCH ×3 (05:32→21:17)
[2019-10-13 05:54] LABS: Calcium 6.9 mg/dL (8.5-10.1); Magnesium 2.1 mg/dL (1.6-2.6); Potassium 3.8 mmol/L (3.5-5.1)
[2019-10-13 05:55] LABS: BUN/Creatinine Ratio 29.5
[2019-10-13 06:00] VITALS: BP 150/69
[2019-10-13] MEDS: METOPROLOL TARTRATE 1MG/1ML-5ML VIAL IV SCH ×5 (06:00→23:55)
[2019-10-13] MEDS: InsuLIN REG 1unit/0.01ml Soln (100units/ml) SC SCH ×5 (06:02→23:56)
[2019-10-13] MEDS: ACCU-CHEK COMFORT CURVE STRIP VI SCH ×5 (06:03→23:56)
[2019-10-13 06:05] LABS: Bilirubin, Total 0.3 mg/dL (0.2-1.0); Phosphorus 2.1 mg/dL (2.5-4.90); Total Protein 4.4 g/dL (6.4-8.2)
[2019-10-13 09:00] VITALS: BP 149/74
[2019-10-13] MEDS: PANTOPRAZOLE 40 MG/10 ML VIAL INJ IV SCH (09:46)
[2019-10-13] MEDS: SODIUM CHLOR 0.9% PF (SALINE LOCK) 10ML VIAL/SYR IV SCH ×2 (09:46→21:17)
[2019-10-13] MEDS: D5W/SOD CHL 0.45%/KCL 20MEQ 1,000 ML IV SCH (10:42)
[2019-10-13] MEDS: HYDROmorphone HCL 2 MG/ML VL IV PRN ×3 (10:43→22:11)
[2019-10-13] MEDS ORDERED: SODIUM PHOSPHATES 20 MEQ in SODIUM CHL 0.9% 100 ML IV ONE (11:45)
[2019-10-13 13:00] VITALS: BP 151/72
[2019-10-13] MEDS: ONDANSETRON HCL 4 MG/2 ML VIAL IV PRN (15:37)
[2019-10-13 17:00] VITALS: BP 134/53
[2019-10-13] MEDS ORDERED: TPN PER PHARMACY IV NR ×11 (20:00)
[2019-10-13 22:00] VITALS: BP 137/66
[2019-10-14] MEDS: NEOSTIGMINE 1 MG/ML INJ (10mg/10ML VIAL) SC SCH ×6 (01:02→22:23)
[2019-10-14] MEDS: HYDROmorphone HCL 2 MG/ML VL IV PRN ×2 (01:58→06:37)
[2019-10-14] MEDS: D5W/SOD CHL 0.45%/KCL 20MEQ 1,000 ML IV SCH ×2 (03:34→20:45)
[2019-10-14 05:00] VITALS: BP 142/61
[2019-10-14] MEDS: ceFAZolin 1GM/50ML 50 ML IV SCH ×3 (05:45→22:22)
[2019-10-14] MEDS: METOPROLOL TARTRATE 1MG/1ML-5ML VIAL IV SCH ×3 (05:46→18:15)
[2019-10-14] MEDS: ACCU-CHEK COMFORT CURVE STRIP VI SCH ×3 (06:07→18:15)
[2019-10-14 06:08] LABS: Basophils # (auto) 0 10 ^3/uL (0-0.2); Basophils % (auto) 0.4 % (0.0-2.0); Eosinophils # (auto) 0.2 10 ^3/uL (0-0.8); Eosinophils % (auto) 1.5 % (0.0-7.0); Hematocrit 31.8 % (36.0-46.0); Hemoglobin 10.7 g/dL (12.2-16.2); Lymphocytes # (auto) 0.9 10 ^3/uL (0.4-5.4); Lymphocytes % (auto) 8.1 % (10.0-50.0); Mean Corpuscular Hemoglobin 28.6 pg (28.0-32.0); Mean Corpuscular Hgb Conc. 33.7 g/dL (32.0-36.0); Mean Corpuscular Volume 84.9 fL (80.0-100.0); Monocytes # (auto) 1.2 10 ^3/uL (0-1.3); Monocytes % (auto) 10.4 % (0.0-12.0); Neutrophils # (auto) 8.9 10 ^3/uL (1.6-8.6); Neutrophils % (auto) 79.6 % (37.0-80.0); Platelet Count (auto) 221 10^3/uL (140-450); Red Blood Cells 3.74 10^6/uL (4.0-5.20); Red Cell Distribution Width 16.7 % (11.8-14.3); White Blood Cell 11.2 10^3/uL (4.4-10.8)
[2019-10-14] MEDS: InsuLIN REG 1unit/0.01ml Soln (100units/ml) SC SCH ×3 (06:08→18:19)
[2019-10-14 06:18] LABS: Calcium 6.8 mg/dL (8.5-10.1); Magnesium 2.2 mg/dL (1.6-2.6); Potassium 4.3 mmol/L (3.5-5.1)
[2019-10-14 06:21] LABS: BUN/Creatinine Ratio 32.5; Bilirubin, Total 0.4 mg/dL (0.2-1.0); Phosphorus 2.4 mg/dL (2.5-4.90); Total Protein 4.6 g/dL (6.4-8.2)
[2019-10-14] MEDS: metroNIDAZOLE 500MG/100ML 100 ML IV SCH ×3 (06:31→22:22)
[2019-10-14] MEDS ORDERED: SODIUM PHOSPHATES 20 MEQ in SODIUM CHL 0.9% 100 ML IV ONE (08:45)
[2019-10-14 09:00] VITALS: BP 144/73
[2019-10-14] MEDS: SODIUM CHLOR 0.9% PF (SALINE LOCK) 10ML VIAL/SYR IV SCH ×2 (10:04→22:22)
[2019-10-14] MEDS: PANTOPRAZOLE 40 MG/10 ML VIAL INJ IV SCH (10:04)
[2019-10-14] MEDS: MORPHINE SULF INJ 2 MG/ML SYRINGE 1ML IV PRN ×2 (11:15→22:23)
[2019-10-14 12:53] VITALS: BP 148/69
[2019-10-14 17:00] VITALS: BP 145/72
[2019-10-14] MEDS ORDERED: TPN PER PHARMACY IV NR ×12 (20:00)
[2019-10-14 21:57] VITALS: BP 151/72
[2019-10-15] VITALS (7 sets, daily range): BP systolic 136–157; BP diastolic 58–78
[2019-10-15] MEDS: METOPROLOL TARTRATE 1MG/1ML-5ML VIAL IV SCH ×5 (00:08→23:35)
[2019-10-15] MEDS: ACCU-CHEK COMFORT CURVE STRIP VI SCH ×5 (00:08→23:36)
[2019-10-15] MEDS: InsuLIN REG 1unit/0.01ml Soln (100units/ml) SC SCH ×5 (00:09→23:36)
[2019-10-15] MEDS: NEOSTIGMINE 1 MG/ML INJ (10mg/10ML VIAL) SC SCH ×6 (01:56→21:24)
[2019-10-15] MEDS: MORPHINE SULF INJ 2 MG/ML SYRINGE 1ML IV PRN ×3 (05:18→18:26)
[2019-10-15] MEDS: metroNIDAZOLE 500MG/100ML 100 ML IV SCH ×3 (06:13→21:23)
[2019-10-15] MEDS: ceFAZolin 1GM/50ML 50 ML IV SCH ×3 (06:13→21:23)
[2019-10-15 06:39] LABS: Calcium 7.2 mg/dL (8.5-10.1)
[2019-10-15 06:45] LABS: Albumin 1.9 g/dL (3.4-5.0); Bilirubin, Total 0.3 mg/dL (0.2-1.0); Magnesium 2.1 mg/dL (1.6-2.6); Phosphorus 2.7 mg/dL (2.5-4.90); Total Protein 4.4 g/dL (6.4-8.2)
[2019-10-15] MEDS: PANTOPRAZOLE 40 MG/10 ML VIAL INJ IV SCH (11:01)
[2019-10-15] MEDS: SODIUM CHLOR 0.9% PF (SALINE LOCK) 10ML VIAL/SYR IV SCH ×2 (11:02→21:24)
[2019-10-15] MEDS: D5W/SOD CHL 0.45%/KCL 20MEQ 1,000 ML IV SCH (13:15)
[2019-10-15] MEDS: ONDANSETRON HCL 4 MG/2 ML VIAL IV PRN (14:58)
[2019-10-15] MEDS ORDERED: TPN PER PHARMACY IV NR ×12 (20:00)
[2019-10-16] MEDS: MORPHINE SULF INJ 2 MG/ML SYRINGE 1ML IV PRN (00:03)
[2019-10-16] MEDS: NEOSTIGMINE 1 MG/ML INJ (10mg/10ML VIAL) SC SCH ×3 (02:19→10:00)
[2019-10-16 04:33] VITALS: BP 145/69
[2019-10-16] MEDS: D5W/SOD CHL 0.45%/KCL 20MEQ 1,000 ML IV SCH (05:21)
[2019-10-16] MEDS: ceFAZolin 1GM/50ML 50 ML IV SCH ×2 (05:21→10:40)
[2019-10-16] MEDS: metroNIDAZOLE 500MG/100ML 100 ML IV SCH ×2 (05:21→10:40)
[2019-10-16] MEDS: METOPROLOL TARTRATE 1MG/1ML-5ML VIAL IV SCH ×2 (05:22→10:40)
[2019-10-16] MEDS: InsuLIN REG 1unit/0.01ml Soln (100units/ml) SC SCH ×2 (05:23→10:40)
[2019-10-16] MEDS: ACCU-CHEK COMFORT CURVE STRIP VI SCH ×2 (05:23→10:40)
[2019-10-16 06:36] LABS: Potassium 4.3 mmol/L (3.5-5.1)
[2019-10-16 06:44] LABS: Albumin 1.8 g/dL (3.4-5.0); BUN/Creatinine Ratio 27.3; Bilirubin, Total 0.3 mg/dL (0.2-1.0); Magnesium 1.9 mg/dL (1.6-2.6); Phosphorus 2.7 mg/dL (2.5-4.90); Total Protein 4.1 g/dL (6.4-8.2)
[2019-10-16 09:00] VITALS: BP 139/73
[2019-10-16] MEDS: SODIUM CHLOR 0.9% PF (SALINE LOCK) 10ML VIAL/SYR IV SCH (10:00)
[2019-10-16] MEDS: PANTOPRAZOLE 40 MG/10 ML VIAL INJ IV SCH (10:00)
== END 2019-10-16 10:36 | disposition home health service (06) | DRG 853 ==
LOC: ER 14:58 → EDSEX 14:58 → EDBD 14:58 → TELE 14:59 → UNDOADMIN 14:59 → TELE-WESTW 15:00 → DOU IN ICU 10-09 13:52 → TELE-WESTW 10-11 13:14
PROVIDERS: ADMIT Nurse Practitioner Acute Care; ATTEND Family Medicine
PROC: 02HV33Z Insertion of Infusion Device into Superior Vena Cava, Percutaneous Approach (ICD-10-PCS; principal; 2019-10-10)
PROC: 0DBB0ZZ Excision of Ileum, Open Approach (ICD-10-PCS; 2019-10-10)
PROC: 0DNB0ZZ Release Ileum, Open Approach (ICD-10-PCS; 2019-10-10)
DX: A41.9 Sepsis, unspecified organism (principal); K56.2 Volvulus; E43 Unspecified severe protein-calorie malnutrition; K56.52 Intestinal adhesions [bands] with complete obstruction; K56.7 Ileus, unspecified; K59.01 Slow transit constipation; E86.0 Dehydration; I10 Essential (primary) hypertension; D63.8 Anemia in other chronic diseases classified elsewhere; R62.7 Adult failure to thrive; J44.9 Chronic obstructive pulmonary disease, unspecified; F03.90 Unspecified dementia, unspecified severity, without behavioral disturbance, psychotic disturbance, mood disturbance, and anxiety; E03.9 Hypothyroidism, unspecified; Z85.118 Personal history of other malignant neoplasm of bronchus and lung; Q43.0 Meckel's diverticulum (displaced) (hypertrophic); Z88.8 Allergy status to other drugs, medicaments and biological substances; Z79.899 Other long term (current) drug therapy; Z82.49 Family history of ischemic heart disease and other diseases of the circulatory system; Z81.8 Family history of other mental and behavioral disorders; Z68.26 Body mass index [BMI] 26.0-26.9, adult
CPT/HCPCS: 36415; 36569; 71045; 74018; 74176; 74250; 80048; 80053; 81001; 82040; 82962; 83605; 83735; 83880; 84100; 84443; 84478; 84484; 85025; 85610; 85730; 86850; 86900; 86901; 87040; 87081; 93005; 93306; 93886; 97110; 97116; 97163; 97530; C9113; G0378; J0330; J0690; J0696; J1815; J2405; J2543; J2704; J3490; J7060; J7131

== ENCOUNTER 2019-12-04 15:56 | Inpatient (IN) | payer MEDICARE ==
[~2019-12-04] VITALS: Ht 160 cm; Wt 53.0 kg
[2019-12-04 16:42] LABS: Basophils # (auto) 0 10 ^3/uL (0-0.2); Eosinophils # (auto) 0 10 ^3/uL (0-0.8); Eosinophils % (auto) 0.9 % (0.0-7.0); Hematocrit 34.9 % (36.0-46.0); Monocytes # (auto) 0.6 10 ^3/uL (0-1.3); Neutrophils # (auto) 2.6 10 ^3/uL (1.6-8.6); Platelet Count (auto) 237 10^3/uL (140-450)
[2019-12-04 16:44] LABS: Basophils % (auto) 0.4 % (0.0-2.0); Hemoglobin 11.4 g/dL (12.2-16.2); Lymphocytes # (auto) 0.6 10 ^3/uL (0.4-5.4); Lymphocytes % (auto) 16.5 % (10.0-50.0); Mean Corpuscular Hemoglobin 26.2 pg (28.0-32.0); Mean Corpuscular Hgb Conc. 32.8 g/dL (32.0-36.0); Mean Corpuscular Volume 80.1 fL (80.0-100.0); Monocytes % (auto) 14.7 % (0.0-12.0); Neutrophils % (auto) 67.5 % (37.0-80.0); Nucleated Red Blood Cells % 0.1 %; Red Blood Cells 4.36 10^6/uL (4.0-5.20); Red Cell Distribution Width 15.9 % (11.8-14.3); White Blood Cell 3.8 10^3/uL (4.4-10.8)
[2019-12-04 16:58] LABS: Alanine Aminotransferase 21 U/L (13-56); Albumin 2.3 g/dL (3.4-5.0); Anion Gap 6 (5-15); Aspartate Aminotransferase 29 U/L (15-37); BUN/Creatinine Ratio 16.4; Blood Urea Nitrogen 12 mg/dL (7-18); Calcium 7.2 mg/dL (8.5-10.1); Carbon Dioxide 28 mmol/L (21-32); Chloride 103 mmol/L (98-107); GFR African American 97 mL/min; GFR Non-African American 80 mL/min; Glucose 87 mg/dL (74-106); Sodium 137 mmol/L (136-145)
[2019-12-04 17:03] LABS: Alkaline Phosphatase 108 U/L (45-117); Bilirubin, Total 0.6 mg/dL (0.2-1.0); Total Protein 5.5 g/dL (6.4-8.2)
[2019-12-04] MEDS ORDERED: traMADol HCL 50 MG TAB PO PRN (18:00)
[2019-12-04] MEDS ORDERED: NITROGLYCERIN 0.4 MG SL TAB SL PRN (18:00)
[2019-12-04] MEDS ORDERED: MORPHINE SULF INJ 2 MG/ML SYRINGE 1ML IV PRN (18:00)
[2019-12-04] MEDS ORDERED: cefTRIAXone 1GM/50ML D5W 50 ML IV ONE (18:30)
[2019-12-04] MEDS: SODIUM CHLORIDE 0.9% 1,000 ML IV SCH (19:15)
[2019-12-04 20:30] VITALS: BP 119/64
--- NOTE | 2019-12-04 20:30 | NUR ---
Telemetry admit from ER JAZMINAVI admitted to Telemetry unit after SBAR received. Patient oriented to AMIE MONGE, RN primary RN, unit, room, bed, and unit policies regarding patient care and visiting hours. Patient now on continuous telemetry monitoring, tele box #[id number] and telemetry reading on arrival to unit is 70. Patient weighed by bedscale and encouraged to call if they need something. All questions and concerns addressed, patient verbalized understanding.
[2019-12-04 22:00] VITALS: BP 119/64
[2019-12-04] MEDS: METOPROLOL TARTRATE 25 MG TAB PO SCH (22:32)
[2019-12-04] MEDS: GABAPENTIN 300 MG CAP PO SCH (22:32)
[2019-12-04 22:59] LABS: Urine Bacteria FEW /hpf (None Seen); Urine Blood Negative /uL (Negative); Urine Specific Gravity 1.012 (1.001-1.035); Urine WBC 32 /hpf (0 - 5)
[2019-12-05 05:00] VITALS: BP 127/63
[2019-12-05] MEDS: GABAPENTIN 300 MG CAP PO SCH ×3 (05:45→21:41)
[2019-12-05 06:59] LABS: Albumin 2.3 g/dL (3.4-5.0); Calcium 7.5 mg/dL (8.5-10.1); Potassium 3.7 mmol/L (3.5-5.1)
[2019-12-05 07:01] LABS: BUN/Creatinine Ratio 18.5
[2019-12-05 07:14] LABS: Bilirubin, Total 0.6 mg/dL (0.2-1.0); Total Protein 5.5 g/dL (6.4-8.2)
--- NOTE | 2019-12-05 07:30 | NUR ---
Opening Shift Note Assumed care of patient, awake and alert. No S/S of distress/SOB. DENIES pain ON RIGHT SHOULDER AT THIS TIME Instructed on POC and to call for assist PRN, will continue to monitor for changes Q1hr and PRN.
[2019-12-05 08:51] VITALS: BP 141/68
[2019-12-05] MEDS: cefTRIAXone 1GM/50ML D5W 50 ML IV SCH (09:29)
[2019-12-05] MEDS: METOPROLOL TARTRATE 25 MG TAB PO SCH ×2 (09:30→21:41)
[2019-12-05] MEDS: ACETAMINOPHEN/CODEINE#3 (300/30mg) TAB PO PRN (10:20)
--- NOTE | 2019-12-05 10:30 | NUR ---
PT ASSISTED OUT OF BED AND INTO THE CHAIR. TOLERATED WELL. PT STARTED COMPLAINING OF PAIN ON HER RIGHT SHOULDER. SHE STATED THAT SHE WASN'T ABLE TO MOVE HER RIGHT UPPER EXTREMITY WHEN SHE CAME IN TO THE HOSPITAL AND THAT IT FELT LIKE IT WAS PARALYZED BUT NOW SHE'S GLAD THAT SHE FEELS SOMETHING AGAIN EVEN IF IT'S PAIN. PT GIVEN PO PAIN MEDS ORDERED.
[2019-12-05] MEDS: SODIUM CHLORIDE 0.9% 1,000 ML IV SCH (10:40)
--- NOTE | 2019-12-05 11:00 | NUR ---
WOUND CARE NOTE: IN TO SEE PATIENT AT THIS TIME PER WOUND CARE CONSULT REQUEST. PATIENT NOTED UPON ADMIT TO HAVE WOUNDS. WOUND CONSULT/PHOTOS PROVIDED BY BEDSIDE NURSE AT THAT TIME. PATIENT ADMITTED TO [facility] WITH DIAGNOSIS OF GENERALIZED WEAKNESS, CURRENT ALEXANDER SCORE OF 14. PATIENT IS NOTED TO BE ABLE TO TURN/REPOSITION SELF WITH MINIMAL ASSISTANCE BY STAFF. SHE HAS A SMALL SCABBED FISSURE TO THE LEFT THUMB. WOUND IS COVERED WITH BROWN ESCHAR SCAB, LEFT OPEN TO AIR. PATIENT TURNED TO LEFT SIDE. SHE IS NOTED TO HAVE A SLOW BLANCHING REDNESS, THAT APPEARS MASD. SKIN INTACT. APPLIED ZGUARD, OPTIFOAM GENTLE SACRAL DRESSING PREVENTATIVE. NO OTHER SKIN INTEGRITY ISSUES SEEN AT THIS TIME. RECOMMEND: FREQUENT TURN SCHEDULE Q 2 HOURS, PRN CONDITION PERMITS, WITH PRESSURE REDISTRIBUTION USING PILLOWS/WEDGES, BID/PRN APPLICATION WITH MOISTURE BARRIER CREAM, OPTIFOAM GENTLE SACRAL DRESSING PREVENTATIVE, SKIN/WOUND CARE PLAN, CONTINUED MONITORING BY WOUND CARE TEAM. Addendum: 12/05/19 at 1548 by Ila Forde RN Amended: Links added.
--- NOTE | 2019-12-05 11:30 | NUR ---
DR LOO AT BEDSIDE MADE AWARE OF PT'S VTE RISK ASSESSMENT. PER MD, NO ANTICOAGULANT TO BE GIVEN AT THIS TIME DUE TO A DECREASE IN HGB LEVEL. ORDERED FOR SCD'S. INFORMED MD THAT WE DON'T HAVE ANY SCD MACHINE AVAILABLE AT THIS TIME BUT WE'LL CONTINUE TO LOOK.
[2019-12-05] MEDS ORDERED: IOHEXOL 350 MG/ML 100ML IJ ONE (12:08)
[2019-12-05 12:42] VITALS: BP 133/68
--- NOTE | 2019-12-05 13:30 | NUR ---
PT CAME BACK FROM CT WITH NEW IV ON RIGHT AC, 20G. PREVIOIUS IV ON LEFT UPPER ARM RED AND PUFFY. IV DC'd with clean sterile technique, catheter fully intact. Pressure dressing applied to site. Patient tolerated well. NOTE:
--- NOTE | 2019-12-05 14:39 | NUR ---
Est energy needs 0745-0980 kcal (30-35 kcal/kg BW 46.2kg) Est protein needs 55-60g (1.2-1.3g/kg BW 46.2kg r/t juan rt) Will reassess prn. Addendum: 12/05/19 at [address] Amended: Links added.
--- NOTE | 2019-12-05 14:50 | NUR ---
BILATERAL SCD IN PLACE.
[2019-12-05 16:43] VITALS: BP 126/45
[2019-12-05] MEDS: LACTULOSE 20Gm/30ML SOLN PO SCH ×2 (17:51→21:41)
--- NOTE | 2019-12-05 19:39 | NUR ---
Opening Shift Note Received report and assumed care of patient. Patient is awake and alert. No signs or symptoms of distress noted. Instructed patient on plan of care and to call for assistance as needed. Will continue to monitor.
[2019-12-05] MEDS ORDERED: LORazepam 2MG/ML-1ML VIAL IV PRN (20:30)
[2019-12-05 22:00] VITALS: BP 105/66
--- NOTE | 2019-12-05 22:47 | NUR ---
Pain Medication Administration Patient complaining of Right shoulder pain 10/10. Will administer pain medication per MD order. Will reassess pain level and will continue to monitor.
--- NOTE | 2019-12-05 23:47 | NUR ---
Pain Level Reassessment Patient's pain level reassessed to be 3/10. Repositioned patient for comfort with pillow. Patient states pain level is tolerable. Will continue to monitor.
[2019-12-06] MEDS: SODIUM CHLORIDE 0.9% 1,000 ML IV SCH ×2 (03:20→20:00)
[2019-12-06 05:00] VITALS: BP 108/56
[2019-12-06] MEDS: GABAPENTIN 300 MG CAP PO SCH ×3 (05:58→21:16)
[2019-12-06] MEDS: LACTULOSE 20Gm/30ML SOLN PO SCH ×4 (05:58→21:16)
--- NOTE | 2019-12-06 07:30 | NUR ---
Opening Shift Note Assumed care of patient, awake and alert. No S/S of distress/SOB. PAIN ON RIGHT SHOULDER ONLY WHEN MOVING IN A CERTAIN WAY. Instructed on POC and to call for assist PRN, will continue to monitor for changes Q1hr and PRN.
[2019-12-06 09:00] VITALS: BP 119/55
--- NOTE | 2019-12-06 09:00 | NUR ---
PT WAS ABLE TO GET OUT OF BED AND AMBULATE TO THE BATHROOM ON HER OWN WHICH IS MORE THAN WHAT SHE WAS ABLE TO DO YESTERDAY. PT TOLERATED WELL.
[2019-12-06] MEDS: cefTRIAXone 1GM/50ML D5W 50 ML IV SCH (09:10)
[2019-12-06] MEDS: METOPROLOL TARTRATE 25 MG TAB PO SCH ×2 (09:12→21:20)
--- NOTE | 2019-12-06 11:00 | NUR ---
WOUND CARE PICTURE TAKEN
[2019-12-06 13:00] VITALS: BP 116/65
--- NOTE | 2019-12-06 14:16 | NUR ---
assessment re: consult for living situation Patient is a 89 year old female who is alert and oriented. Prior to admission patient lived on the same property as her daughter Liudmila. Per patient she is independent with her ADL's. Patient has a cleaning lady for deep cleaning only. Patients PCP is Dr Lazo. Patient has a fww for home use. Per patient her daughter Rebeka she will transport her home. Patient is on service with [facility]. Patient may benefit from a resumption order for home health for safety eval and nursing. I informed patient she has a right to participate in any and all discharge planning. Patient has a POA and advanced directive. Patient verbalized understanding and agreed to discharge plan. Per consult home health nursing and home safety eval. MD order has been sent to [facility]. Per Kirti at [facility] service will resume within 48 hours of discharge. Addendum: 12/06/19 at 1419 by Bianca RYAN Amended: Links added.
--- NOTE | 2019-12-06 14:30 | NUR ---
PT AGREED TO STAY FOR ANOTHER DAY.
[2019-12-06 17:13] VITALS: BP 115/95
--- NOTE | 2019-12-06 18:10 | NUR ---
PT REPORTED HAVING SEVERAL BM, SOFT AND FORMED. LACTULOSE HELD.
[2019-12-06] MEDS: ACETAMINOPHEN/CODEINE#3 (300/30mg) TAB PO PRN (18:32)
--- NOTE | 2019-12-06 19:30 | NUR ---
Opening shift note Patient sitting up in bed A&Ox4, respirations even and non-labored with no s/s of distress. Assisted patient up in chair due to soiled linen. Changed bedding and gown. Patient tolerated well without c/o pain. Figueroa patent, draining yellow urine. Assisted patient back to bed. Discussed POC, patient verbalized understanding. Bed lowered locked with 2 side rails up, call light within reach. Will continue to monitor.
[2019-12-06 21:00] VITALS: BP 118/49
[2019-12-07 04:30] VITALS: BP 165/81
[2019-12-07] MEDS: LACTULOSE 20Gm/30ML SOLN PO SCH ×2 (05:58→12:00)
[2019-12-07] MEDS: GABAPENTIN 300 MG CAP PO SCH ×2 (05:59→14:00)
--- NOTE | 2019-12-07 06:00 | NUR ---
Assisted patient with morning hygiene Assisted with repositioning, pillows under right shoulder/arm for comfort. Teeth brushed and wet towels provided for washing.
--- NOTE | 2019-12-07 07:21 | NUR ---
Closing shift note Patient resting with eyes closed, respirations even and non-labored with no s/s of distress. Endorsed care to day shift RNJoy.
--- NOTE | 2019-12-07 08:43 | NUR ---
Hospitalist at bedside MD Ascencio aware of patient's status. new orders received for dc home today on . craft worker application consultant paged
--- NOTE | 2019-12-07 08:55 | NUR ---
Spoke to bilingual social worker Bianca regarding social service consult for HH, pt set up with [facility]. Will dc as ordered
[2019-12-07 09:00] VITALS: BP 131/68
[2019-12-07] MEDS: cefTRIAXone 1GM/50ML D5W 50 ML IV SCH (10:28)
[2019-12-07] MEDS: METOPROLOL TARTRATE 25 MG TAB PO SCH (10:28)
--- NOTE | 2019-12-07 10:29 | NUR ---
Black catheter dc'd Order to discontinue black catheter. Black dc'd with clean technique following deflation of balloon. Patient tolerated well with no complaints of pain. Patient assisted to bathroom, no distress noted. Continue care. Signed: 12/07/19 at 1640 by JUDY CRESPO <Co-Signature Required> Co-Signed: 12/07/19 at 1640 by Joy Pacheco RN
[2019-12-07] MEDS: SODIUM CHLORIDE 0.9% 1,000 ML IV SCH (12:40)
[2019-12-07 13:00] VITALS: BP 122/62
--- NOTE | 2019-12-07 14:46 | NUR ---
MICHELLE AT BEDSIDE DR LEYVA AT BEDSIDE. INSTRUCTED PATIENT TO FOLLOW UP IN THE CLINIC UPON DISCHARGE REGARDING RIGHT SHOULDER PAIN INSTRUCTED PER PATIENT. PATIENT VERBALIZED UNDERSTANDING. Signed: 12/07/19 at 1643 by JUDY CRESPO <Co-Signature Required> Co-Signed: 12/07/19 at 1643 by Joy Pacheco RN
[2019-12-07 15:50] VITALS: BP 122/62
--- NOTE | 2019-12-07 16:35 | NUR ---
Discharge instructions given as ordered to patient and daughter over the phone. Encourage to follow up with PMD and specialist as instructed. All questions and concerns addressed. Patient verbalized understanding. Medication reconciliation form completed and copy given to patient. Prescriptions given to patient and educated on use, side effects, signs/symptoms, and any complications. Patient verbalized understanding. IV removed with catheter intact, pressure dressing applied. Telemetry unit returned to ICU. Patient taken to vehicle via wheelchair with all personal belongings, accompanied by staff and family member awaiting down in the lobby. No distress noted at time of departure. Signed: 12/07/19 at 1638 by JUDY CRESPO SN <Co-Signature Required> Co-Signed: 12/07/19 at 1638 by Joy Pacheco RN
== END 2019-12-07 16:45 | disposition home health service (06) | DRG 871 ==
LOC: ER 15:56 → EDBD 15:56 → TELE 15:57 → TELE-WESTW 20:20
PROVIDERS: ADMIT Nurse Practitioner Acute Care; ATTEND Family Medicine
DX: A41.9 Sepsis, unspecified organism (principal); G92 Toxic encephalopathy; E44.0 Moderate protein-calorie malnutrition; R64 Cachexia; N39.0 Urinary tract infection, site not specified; Z68.1 Body mass index [BMI] 19.9 or less, adult; I10 Essential (primary) hypertension; E03.9 Hypothyroidism, unspecified; Z85.118 Personal history of other malignant neoplasm of bronchus and lung; D63.8 Anemia in other chronic diseases classified elsewhere; E86.0 Dehydration; R62.7 Adult failure to thrive; F03.90 Unspecified dementia, unspecified severity, without behavioral disturbance, psychotic disturbance, mood disturbance, and anxiety; G62.9 Polyneuropathy, unspecified; R29.6 Repeated falls; E78.5 Hyperlipidemia, unspecified; F17.200 Nicotine dependence, unspecified, uncomplicated; F32.9 Major depressive disorder, single episode, unspecified; F41.9 Anxiety disorder, unspecified; M65.9 Synovitis and tenosynovitis, unspecified; M19.011 Primary osteoarthritis, right shoulder; G43.909 Migraine, unspecified, not intractable, without status migrainosus; J44.9 Chronic obstructive pulmonary disease, unspecified; Z79.83 Long term (current) use of bisphosphonates; Z79.899 Other long term (current) drug therapy; Z86.718 Personal history of other venous thrombosis and embolism; Z90.2 Acquired absence of lung [part of]; Z90.710 Acquired absence of both cervix and uterus; Z95.828 Presence of other vascular implants and grafts; Z85.3 Personal history of malignant neoplasm of breast
CPT/HCPCS: 36415; 70450; 71045; 71275; 73030; 73221; 80053; 81001; 83735; 83880; 84443; 84484; 85025; 85379; 87040; 87086; 93005; 93970; 95819; 97110; 97163; 97530; G0378; J0696

== ENCOUNTER 2020-01-08 07:34 | Emergency (ER) | payer MEDICARE ==
[~2020-01-08] VITALS: Ht 160 cm; Wt 47.2 kg
[~2020-01-08 07:34] MED LIST changes: -LORA2TAB10 PO; +LORA2TAB12 PO
[2020-01-08 07:46] VITALS: BP 97/45
[2020-01-08] MEDS ORDERED: ACETAMINOPHEN/CODEINE#3 (300/30mg) TAB PO ONE (08:30)
== END 2020-01-08 08:58 | disposition home or self-care (01) ==
LOC: ER 07:34
DX: M19.011 Primary osteoarthritis, right shoulder (principal); M77.8 Other enthesopathies, not elsewhere classified; M19.90 Unspecified osteoarthritis, unspecified site; F41.9 Anxiety disorder, unspecified; J44.9 Chronic obstructive pulmonary disease, unspecified; F32.9 Major depressive disorder, single episode, unspecified; E78.5 Hyperlipidemia, unspecified; I10 Essential (primary) hypertension; Z87.891 Personal history of nicotine dependence; Z79.899 Other long term (current) drug therapy; Z88.8 Allergy status to other drugs, medicaments and biological substances